=== PATIENT | male | born 2000 | race African-American/Black ===

== ENCOUNTER 2022-11-14 09:57 | Emergency (ER) | payer OTHER, MEDICAID ==
[~2022-11-14] VITALS: Ht 180.3 cm; Wt 72.7 kg
[~2022-11-14 09:57] MED LIST: ALBU17AE16 IH; NOCURR
[2022-11-14 10:03] VITALS: BP 143/91
[2022-11-14] MEDS ORDERED: BECL10.6 IH (10:08)
[2022-11-14] MEDS ORDERED: ATOR40TA28 PO (10:13)
[2022-11-14] MEDS ORDERED: LORA10TA7 PO (10:13)
[2022-11-14] MEDS ORDERED: HYDR-4870 PO (10:13)
[2022-11-14] MEDS ORDERED: RIZA10TA42 PO (10:13)
[2022-11-14 10:45] LABS: COVID AG,FIA SOURCE NASAL SWAB
[2022-11-14 12:37] LABS: INFLUENZA TYPE A NEGATIVE FOR TYPE A (NEGATIVE); INFLUENZA TYPE B NEGATIVE FOR TYPE B (NEGATIVE)
== END 2022-11-14 13:52 | disposition home or self-care (01) ==
LOC: EMS 10:07
DX: J06.9 Acute upper respiratory infection, unspecified (principal); R05.9 Cough, unspecified; J45.909 Unspecified asthma, uncomplicated; E78.00 Pure hypercholesterolemia, unspecified; I10 Essential (primary) hypertension; F84.0 Autistic disorder; Z88.0 Allergy status to penicillin; Z20.822 Contact with and (suspected) exposure to COVID-19
CPT/HCPCS: 87804; 99283